=== PATIENT | male | born 1965 | race African-American/Black ===

== ENCOUNTER 2016-12-06 13:05 | Emergency (ER) | payer SELFPAY ==
[~2016-12-06] VITALS: Ht 160 cm; Wt 63.6 kg
[~2016-12-06 13:05] MED LIST: ASPIRIN E.C. 8181 MG PO; BLOOD PRESSURE MED; CEPHALEXIN500 M1 PO; CHOLESTEROL MED; FLEXERIL 1010 MG/TAB PO; LEVEMIR FLEX100 U/ML SQ; LORTAB 5/500 501 TAB PO; NORCO 325 MG-51 TAB PO; NOVLOG SQ; PROTONIX 40MG T40 MG PO; ROXICODONE 55 MG/TAB PO; THERAGRAN TAB1 UDTAB PO; TOPROL XL 25MG25 MG PO; ZESTORETIC 12.51 TAB PO; ZESTRIL 5MG5 MG PO; ZOCOR 20MG20 MG PO; ZOCOR20 MG PO; ZOFRAN 4MG T4 MG/TAB PO
[2016-12-06 13:07] VITALS: TEMP 98.4
[2016-12-06 14:29] LABS: BASO % 0.4 % (0.0-2.0); EOS # 0.1 (0.0-0.7); EOS % 1.5 % (0-4.0); GRAN # 2.8 (1.4-6.5); GRAN % 58.5 % (42.2-75.2); HEMATOCRIT 46.9 % (42.0-52.0); HEMOGLOBIN 15.7 g/dl (13.5-18.0); LYMPH # 1.5 (1.2-3.4); LYMPH % 30.7 % (20.0-51.0); MEAN CELL VOLUME 89 fl (80.0-100.0); MEAN CORPUSCULAR HEMOGLOBIN 30 pg (27.0-31.0); MEAN CORPUSCULAR HGB CONC 34 g/dl (33.0-37.0); MEAN PLATELET VOLUME 10.6 fl (7.4-10.4); MONO # 0.4 (0.1-0.6); MONO % 8.5 % (1.7-9.3); PLATELET COUNT 254 K/mm3 (130-400); RED BLOOD COUNT 5.26 M/mm3 (4.20-5.60); REDCELL DISTRIBUTION WIDTH-CV 14.9 % (11.5-14.5); WHITE BLOOD COUNT 4.7 K/mm3 (4.8-10.8)
[2016-12-06 14:44] LABS: ADJUSTED CALCIUM 8.8 mg/dL (8.4-10.2); ALANINE AMINOTRANSFERASE 44 U/L (21-72); ALBUMIN 3.9 gm/dL (3.5-5.0); ALKALINE PHOSPHATASE 99 U/L (50-136); ANION GAP 13 mmol/L (7-16); BLOOD UREA NITROGEN 12 mg/dL (9-20); CALCIUM 8.7 mg/dL (8.4-10.2); CARBON DIOXIDE 24 mmol/L (22-30); CHLORIDE 105 mmol/L (98-107); CREATININE, serum 0.67 mg/dL (0.66-1.25); GLUCOSE 254 mg/dL (74-106); POTASSIUM 3.9 mmol/L (3.4-5.0); SODIUM 142 mmol/L (137-145)
[2016-12-06 14:46] LABS: ACETAMINOPHEN < 10 ug/mL (10-30); SALICYLATE < 1.0 mg/dL
[2016-12-06 15:18] LABS: AMPHETAMINE URINE NEGATIVE; BARBITURATES URINE NEGATIVE; BENZODIAZEPINES URINE NEGATIVE; BUPRENORPHINE URINE NEGATIVE; METHADONE URINE NEGATIVE; OPIATES URINE NEGATIVE; OXYCODONE URINE NEGATIVE; PHENCYCLIDINE URINE NEGATIVE; PROPOXYPHENE URINE NEGATIVE; THC CANNABINOIDS URINE POSITIVE
[2016-12-06 17:26] VITALS: BP 167/108; PULSE 94
== END 2016-12-06 17:26 | disposition home or self-care (01) ==
LOC: COL.ER 13:05
PROVIDERS: Emergency Medicine
DX: F32.9 Major depressive disorder, single episode, unspecified (principal); R45.851 Suicidal ideations; E10.9 Type 1 diabetes mellitus without complications; Z79.4 Long term (current) use of insulin; I10 Essential (primary) hypertension; S61.512A Laceration without foreign body of left wrist, initial encounter; X78.9XXA Intentional self-harm by unspecified sharp object, initial encounter

== ENCOUNTER → 2017-05-19 | Outpatient (CLI) | payer SELFPAY | LOC: SUN.DIA 11:05 | DX: E10.9 Type 1 diabetes mellitus without complications (principal); Z79.4 Long term (current) use of insulin; F17.210 Nicotine dependence, cigarettes, uncomplicated | CPT/HCPCS: G0108 ==

== ENCOUNTER → 2017-10-13 | Outpatient (CLI) | payer MEDICAID | LOC: COL.RAD 08:11 | DX: K86.2 Cyst of pancreas (principal); K83.8 Other specified diseases of biliary tract; K76.0 Fatty (change of) liver, not elsewhere classified; K76.89 Other specified diseases of liver; R74.8 Abnormal levels of other serum enzymes ==

== ENCOUNTER → 2018-11-08 | Outpatient (CLI) | payer MEDICAID ==
[~2018-11-08] MED LIST changes: +ASPIRIN 81M81 MG/TA2 PO; +LOPRESSOR 225 MG/TAB PO; +NEURONTIN100 MG/CAP PO; +PRINIVIL40 MG PO
== END ==
LOC: COL.RAD 10-27 08:30
DX: K86.2 Cyst of pancreas (principal)
CPT/HCPCS: Q9967

== ENCOUNTER 2019-09-16 05:53 | Day surgery (SDC) | payer MEDICAID ==
[~2019-09-16] VITALS: Ht 165.1 cm; Wt 60.5 kg
[2019-09-16] MEDS ORDERED: ZYBAN150 M1 PO (06:11)
[2019-09-16] MEDS ORDERED: [UNRECOGNIZED DRUG - CODE] PO (06:11)
[2019-09-16] MEDS ORDERED: LANTUS SOLOS100 U/ML SQ (06:12)
[2019-09-16] MEDS ORDERED: NOVOLOG FLEX100 U/ML SQ (06:13)
[2019-09-16 06:29] VITALS: BP 101/75; PULSE 100; TEMP 97.7
--- NOTE | 2019-09-16 06:45 | NUR ---
BG level reported to Endo RN Veronica Camara pre-procedure.
[2019-09-16 07:35] VITALS: BP 93/66; PULSE 90; TEMP 98.4
--- NOTE | 2019-09-16 07:35 | NUR ---
The patient arrived back to [facility] from the [facility] at this time. The patient appears alert and oriented and ambulated from the cart to the recliner in his room with the stand by assistance of two nurses and appeared to tolerate the activity well. Post procedure vital signs were started. The patient's is at his bedside. Call light is within reach. The patient agrees to try some water and applesauce at this time. Will continue to monitor the patient.
[2019-09-16 07:48] VITALS: TEMP 98.4
[2019-09-16 07:50] VITALS: BP 88/65; PULSE 92
--- NOTE | 2019-09-16 07:50 | NUR ---
The patient appears to be tolerating the food and drink well and denies wanting anything further at this time. BP appears low but was that way throughout his colonoscopy ,according to the report given by the endoscopy nurse, the patient denies any dizziness or nausea. Will continue to monitor the patient.
[2019-09-16 08:05] VITALS: BP 97/73; PULSE 89
--- NOTE | 2019-09-16 08:10 | NUR ---
Discharge instructions were reviewed with the patient and his at this time. They both verbalized understanding and have no questions for the nurse at this time. The patient's IV to his right hand was removed and a pressure dressing was applied to the site. The nurse instructed the patient to get dressed and notify the staff when he is ready to be escorted out.
--- NOTE | 2019-09-16 08:20 | NUR ---
The patient was escorted out via wheelchair to a private vehicle by CHASTITY Alberto. The patient's belongings and discharge paperwork were sent wtih him. The patient's is present to drive him home.
== END 2019-09-16 08:20 | disposition home or self-care (01) ==
LOC: SDCO 05:53
DX: Z12.11 Encounter for screening for malignant neoplasm of colon (principal); D12.8 Benign neoplasm of rectum; K57.30 Diverticulosis of large intestine without perforation or abscess without bleeding; K64.1 Second degree hemorrhoids; I10 Essential (primary) hypertension; E78.00 Pure hypercholesterolemia, unspecified; M19.90 Unspecified osteoarthritis, unspecified site; K21.9 Gastro-esophageal reflux disease without esophagitis; E11.9 Type 2 diabetes mellitus without complications; Z79.82 Long term (current) use of aspirin; Z87.891 Personal history of nicotine dependence; Z79.4 Long term (current) use of insulin
CPT/HCPCS: J2704; J7030

== ENCOUNTER 2019-11-25 11:23 | Emergency (ER) | payer MEDICAID ==
[~2019-11-25] VITALS: Ht 165.1 cm; Wt 65.9 kg
[~2019-11-25 11:23] MED LIST changes: +LANTUS SOLOS100 U/ML SQ; +NOVOLOG FLEX100 U/ML SQ; +ZYBAN150 M1 PO; +[UNRECOGNIZED DRUG - CODE] PO
[2019-11-25 11:34] VITALS: BP 141/91
[2019-11-25] MEDS ORDERED: PEPCID40 MG PO (12:55)
[2019-11-25] MEDS ORDERED: PREDNISONE20 MG PO (12:55)
[2019-11-25 13:35] VITALS: PULSE 72; TEMP 97.9
== END 2019-11-25 13:35 | disposition home or self-care (01) ==
LOC: COL.ER 11:23
DX: T78.3XXA Angioneurotic edema, initial encounter (principal); E11.9 Type 2 diabetes mellitus without complications; I10 Essential (primary) hypertension; F17.210 Nicotine dependence, cigarettes, uncomplicated; Z79.4 Long term (current) use of insulin
CPT/HCPCS: J7512

== ENCOUNTER 2021-01-13 22:14 | Emergency (ER) | payer MEDICAID ==
[~2021-01-13] VITALS: Ht 165.1 cm; Wt 63.6 kg
[~2021-01-13 22:14] MED LIST changes: +PEPCID40 MG PO; +PREDNISONE20 MG PO
[2021-01-14] MEDS ORDERED: ROXICODONE 55 MG/TAB PO (00:01)
[2021-01-14] MEDS ORDERED: MOTRIN 400400 MG/TAB PO (00:01)
[2021-01-14] MEDS ORDERED: TYLENOL 325MG325 MG PO (00:01)
[2021-01-14 00:25] VITALS: BP 118/72; PULSE 69; TEMP 98.6
[2021-01-14] MEDS ORDERED: CRUTCHES MC (00:34)
== END 2021-01-14 00:25 | disposition home or self-care (01) ==
LOC: COL.ER 22:14
DX: M25.271 Flail joint, right ankle and foot (principal); E10.9 Type 1 diabetes mellitus without complications; Z96.698 Presence of other orthopedic joint implants; Z79.899 Other long term (current) drug therapy; W10.9XXA Fall (on) (from) unspecified stairs and steps, initial encounter; X50.1XXA Overexertion from prolonged static or awkward postures, initial encounter

== ENCOUNTER 2021-06-22 17:56 | Emergency (ER) | payer MEDICAID ==
[~2021-06-22] VITALS: Ht 165.1 cm; Wt 65.9 kg
[~2021-06-22 17:56] MED LIST changes: +CRUTCHES MC; +MOTRIN 400400 MG/TAB PO; +TYLENOL 325MG325 MG PO
[2021-06-22 18:09] VITALS: TEMP 98.5
[2021-06-22 21:48] VITALS: BP 122/92; PULSE 106
== END 2021-06-22 21:48 | disposition home or self-care (01) ==
LOC: COL.ER 17:56
DX: S40.022A Contusion of left upper arm, initial encounter (principal); S06.360A Traumatic hemorrhage of cerebrum, unspecified, without loss of consciousness, initial encounter; I10 Essential (primary) hypertension; E11.9 Type 2 diabetes mellitus without complications; F17.210 Nicotine dependence, cigarettes, uncomplicated; Z79.4 Long term (current) use of insulin; Z79.899 Other long term (current) drug therapy; Y04.8XXA Assault by other bodily force, initial encounter; Y07.499 Other family member, perpetrator of maltreatment and neglect

== ENCOUNTER → 2021-06-24 | Outpatient (CLI) | payer MEDICAID | LOC: COL.RAD 11:30 | DX: I60.9 Nontraumatic subarachnoid hemorrhage, unspecified (principal) ==

== ENCOUNTER → 2021-07-17 | Outpatient (CLI) | payer MEDICAID | LOC: COL.RAD 12:24 | DX: G31.9 Degenerative disease of nervous system, unspecified (principal); I60.9 Nontraumatic subarachnoid hemorrhage, unspecified ==

== ENCOUNTER 2024-06-11 09:35 | Inpatient (IN) | payer MEDICARE ==
[~2024-06-11] VITALS: Ht 160 cm; Wt 59.8 kg
[2024-06-11] VITALS (17 sets, daily range): BP systolic 95–119; BP diastolic 58–73; PULSE 60–102; TEMP 97.4–98.9
[~2024-06-11 09:35] MED LIST changes: +BASAGLAR K100 UNIT/1 SQ; +CREON 36000 PO; +CRESTOR5 MG PO; +FOLIC ACID 11 MG/TA1 PO; +K-DUR 10 MEQ T10 MEQ PO; +MOBIC15 MG PO; +MULTI VITAMINS1 TAB PO; +NORVASC 10MG10 MG PO; +THIAMINE 1100 MG/TAB PO; +TOPROL XL100 MG PO; +WELLBUTRIN XL150 MG PO
[2024-06-11] MEDS ORDERED: Pantoprazole 40 MG in NS 10 ML IV ONE (10:30)
[2024-06-11] MEDS ORDERED: NS 1,000 ML IV ONE (10:30)
[2024-06-11 10:32] LABS: BASO % 0.2 % (0.0-2.0); EOS # 0.1 K/mm3 (0.0-0.7); EOS % 1.5 % (0.0-4.0); GRAN # 5.5 K/mm3 (1.4-6.5); GRAN % 64.7 % (42.2-75.2); LYMPH # 1.9 K/mm3 (1.2-3.4); LYMPH % 22.4 % (20.0-51.0); MEAN CELL VOLUME 95 fl (80.0-100.0); MEAN CORPUSCULAR HGB CONC 30 g/dl (33.0-37.0); MEAN PLATELET VOLUME 10.3 fl (7.4-10.4); MONO # 0.9 K/mm3 (0.1-0.6); MONO % 10.7 % (1.7-9.3); PLATELET COUNT 275 K/mm3 (130-400); RED BLOOD COUNT 2.06 M/mm3 (4.20-5.60); REDCELL DISTRIBUTION WIDTH-CV 15.1 % (11.5-14.5)
[2024-06-11 10:33] LABS: HEMATOCRIT 19.6 % (42.0-52.0); HEMOGLOBIN 5.9 g/dl (13.5-18.0); MEAN CORPUSCULAR HEMOGLOBIN 29 pg (27-31)
[2024-06-11 10:37] LABS: INR 1.2 (0.8-3.0); PROTHROMBIN TIME 13.4 SECONDS (9.7-12.8)
[2024-06-11 10:45] LABS: BILIRUBIN,TOTAL 0.3 mg/dL (0.2-1.2); CALCIUM 8.6 mg/dL (8.4-10.2); CREATININE, serum 0.76 mg/dL (0.72-1.25); POTASSIUM 3.8 mEq/L (3.5-4.5); TOTAL PROTEIN 6.4 g/dl (6.2-8.1)
[2024-06-11] MEDS ORDERED: Pantoprazole 40 MG in NS 10 ML IV SCH (12:13)
[2024-06-11] MEDS ORDERED: KLOR-CON SPRIN10 MEQ PO (12:14)
[2024-06-11] MEDS ORDERED: Acetaminophen 500 MG TAB PO PRN (12:15)
[2024-06-11] MEDS ORDERED: Ondansetron 4 MG/2 ML VIAL IV PRN (12:15)
[2024-06-11] MEDS ORDERED: NS 1,000 ML IV SCH (12:15)
--- NOTE | 2024-06-11 13:04 | NUR ---
Report from er nurse. augustine to room 323. ALert and oriented. Blood transfusion in progress, no signs or symptoms of reaction present. Vss on room air. Admission to be completed.
[2024-06-11] MEDS ORDERED: TRAVATAN Z 2.52.5 ML OU (13:10)
--- NOTE | 2024-06-11 15:07 | NUR ---
Patient blood transfusion completed, spoke with to make her aware, orders obtained. Patient up to the bathroom, reports BM, but flushed before staff could see. He denies stool being dark in color. ICe water provided, NPO 0000.
[2024-06-11 16:01] LABS: HEMATOCRIT 18.6 % (42.0-52.0)
[2024-06-11 16:02] LABS: HEMOGLOBIN 5.9 g/dl (13.5-18.0)
--- NOTE | 2024-06-11 16:03 | NUR ---
notifed of critical H&H results. 5.9. She reports she will order another unit of blood.
[2024-06-11] MEDS ORDERED: Dextrose (Glucose) 15 GM (4 x 3.75 GM) Chewable TABLET PACK PO PRN (16:30)
[2024-06-11] MEDS ORDERED: Glucagon 1 MG VIAL IM PRN (16:30)
[2024-06-11] MEDS ORDERED: Dextrose 50% Water 25 GM/50 ML SYRINGE IV PRN (16:30)
[2024-06-11] MEDS ORDERED: Pancrelipase DR CAP (10,500 Units Lipase) PO SCH (17:00)
[2024-06-11] MEDS ORDERED: Insulin Lispro (HumaLOG) SQ SCH (17:00)
--- NOTE | 2024-06-11 17:01 | NUR ---
Patient resting in bed. He reports hunger. We discussed clear liquid tray options and importance of avoiding red and orange drinks. Second unit of blood start per orders. Signs and symptoms of transfusion reaction reviewed. Blood infusing via LFA @60ml/hr. Vss on room air. THis nurse remains at bedside.
[2024-06-11] MEDS ORDERED: NS 250 ML IV ONE (17:15)
--- NOTE | 2024-06-11 18:25 | NUR ---
Patient resting in bed. rounded this evening, plans for egd tmrw. Patient continues to do well with blood transfusions. Vss. Will report off to nightnurse
--- NOTE | 2024-06-11 19:42 | NUR ---
blood transfusion completed. patient tolerated without signs or symptoms of a reaction. Belenda to resume cares
--- NOTE | 2024-06-11 20:59 | NUR ---
PATIENT RESTING IN BED WITH TV ON WITH NO FAMILY PRESENT WITH NO ACUTE DISTRESS NOTED. PATIENT ON ROOM AIR. NS INFUSING INTO LEFT FOREARM WITH NO COMPLICATIONS NOTED. INT TO RIGHT AC INTACT WITH NO COMPLICATIONS NOTED. PATIENT REQUESTED TO USE BATHROOM. PATIENT AMBULATED TO BATHROOM WITH STAND BY ASSIST. GAIT STEADY. PATIENT DID OWN CARMEN CARE. PATIENT AMBULATED BACK TO BED. BLOOD SUGAR CHECKED AND WAS 114. ASSESSMENT AND MEDICAITON ADMINISTRATION COMPLETED AT THIS TIME. SEE EMAR. PATIENT TOLERATED WELL. JELLO, GRAPE, AND APPLE JUICE GIVEN. PATIENT DENIES ANY OTHER NEEDS. BED IN LOW POSITION WITH WHEELS LOCKED WITH RAILS UP X3 AND CALL LIGHT WITHIN REACH.
[2024-06-11] MEDS ORDERED: Travoprost Ophth Soln **** subs to Latanoprost Ophth Soln OP SCH (21:00)
[2024-06-11] MEDS ORDERED: Insulin Glargine-ygfn (Lantus) SQ SCH (21:00)
[2024-06-11] MEDS ORDERED: Rosuvastatin 5 MG **** subs to Atorvastatin 10 MG PO SCH (21:00)
[2024-06-11] MEDS ORDERED: Atorvastatin 10 MG TAB PO SCH (21:00)
[2024-06-11] MEDS ORDERED: Latanoprost 0.005% Ophth Soln 2.5 ML BOTTLE OP SCH (21:00)
[2024-06-11 23:56] LABS: HEMATOCRIT 20.6 % (42.0-52.0)
[2024-06-12] VITALS (13 sets, daily range): BP systolic 104–145; BP diastolic 63–81; PULSE 68–98; TEMP 98.4–99.2
[2024-06-12 05:29] LABS: BASO % 0.4 % (0.0-2.0); EOS # 0.1 K/mm3 (0.0-0.7); EOS % 2.1 % (0.0-4.0); GRAN # 2.9 K/mm3 (1.4-6.5); GRAN % 61.9 % (42.2-75.2); LYMPH # 1.1 K/mm3 (1.2-3.4); LYMPH % 22.5 % (20.0-51.0); MEAN CORPUSCULAR HGB CONC 33 g/dl (33.0-37.0); MEAN PLATELET VOLUME 10.1 fl (7.4-10.4); MONO # 0.6 K/mm3 (0.1-0.6); MONO % 12.7 % (1.7-9.3); PLATELET COUNT 214 K/mm3 (130-400); RED BLOOD COUNT 2.57 M/mm3 (4.20-5.60); REDCELL DISTRIBUTION WIDTH-CV 18.6 % (11.5-14.5)
[2024-06-12 05:46] LABS: ANION GAP 7 mmol/L (7-16); BLOOD UREA NITROGEN < 5 mg/dL (8-26); CALCIUM 8.2 mg/dL (8.4-10.2); CHLORIDE 112 mEq/L (98-107); CREATININE, serum 0.69 mg/dL (0.72-1.25); GLUCOSE 151 mg/dL (70-99); HEMATOCRIT 21.6 % (42.0-52.0); HEMOGLOBIN 7.1 g/dl (13.5-18.0); MEAN CELL VOLUME 84 fl (80.0-100.0); MEAN CORPUSCULAR HEMOGLOBIN 28 pg (27-31); POTASSIUM 3.7 mEq/L (3.5-4.5); SODIUM 139 mEq/L (136-145)
[2024-06-12] MEDS ORDERED: NS 1,000 ML IV SCH (06:00)
--- NOTE | 2024-06-12 08:00 | NUR ---
Pt doing well with no complaints. Reports no pain at this time. Pt aware that he cannot have anything to eat or drink at this time for scheduled EGD. Consent signed. Informed pt that EGD will be mid to late morning
[2024-06-12] MEDS ORDERED: Influenza Virus Vaccine, Trivalent '24-25 0.5 ML SYRINGE IM SCH ×2 (09:00→15:00)
[2024-06-12] MEDS ORDERED: buPROPion XL (24-HR) 150 MG TAB PO SCH (09:00)
[2024-06-12] MEDS ORDERED: Lidocaine PF 2% (20 MG/ML) 5 ML VIAL ONE (10:54)
--- NOTE | 2024-06-12 11:30 | NUR ---
Pt back from EGD. Explained post op EGD and plan of care, no questions at this time.
--- NOTE | 2024-06-12 13:00 | NUR ---
Pt tolerated clear liquids, pt advanced to ADA per order. Educated pt on room service and gave him his menu and phone to order. pt continues to deny having any pain.
--- NOTE | 2024-06-12 13:12 | NUR ---
NAIL SETTER met with pt bedside to complete initial consult and discuss discharge planing. Pt confirmed pcp as Moncho Gomez and prefered pharmacy is [facility]. Pt has a DPOA that names Faina Leon [phone]. Pt is fully independent at home and utilizes no assistive devices or equipment. Pt matty any falls within the last 3 months. Pt has no financial concerns and feels safe at home. Declined additional resource needs. D/c: Home with partner.
--- NOTE | 2024-06-12 20:25 | NUR ---
Patient sitting up on the edge of the bed. Denies any pain. Assessment complete. IV in left forearm and right AC flush easily without complications. States he would like to take a shower. IV sites wrapped and TELE removed. Patient in shower.
[2024-06-13] VITALS (7 sets, daily range): BP systolic 119–144; BP diastolic 76–80; PULSE 83–91; TEMP 97.4–98.4
[2024-06-13 05:51] LABS: BASO % 0.2 % (0.0-2.0); EOS # 0.1 K/mm3 (0.0-0.7); EOS % 1.7 % (0.0-4.0); GRAN # 3.4 K/mm3 (1.4-6.5); GRAN % 66.1 % (42.2-75.2); LYMPH # 1.1 K/mm3 (1.2-3.4); LYMPH % 21.1 % (20.0-51.0); MEAN CELL VOLUME 83 fl (80.0-100.0); MEAN CORPUSCULAR HGB CONC 33 g/dl (33.0-37.0); MEAN PLATELET VOLUME 10.3 fl (7.4-10.4); MONO # 0.6 K/mm3 (0.1-0.6); MONO % 10.7 % (1.7-9.3); PLATELET COUNT 243 K/mm3 (130-400); RED BLOOD COUNT 2.55 M/mm3 (4.20-5.60); REDCELL DISTRIBUTION WIDTH-CV 18.2 % (11.5-14.5)
[2024-06-13 05:54] LABS: HEMATOCRIT 21.1 % (42.0-52.0); MEAN CORPUSCULAR HEMOGLOBIN 27 pg (27-31)
[2024-06-13 06:09] LABS: CALCIUM 8.4 mg/dL (8.4-10.2); CREATININE, serum 0.78 mg/dL (0.72-1.25); POTASSIUM 3.9 mEq/L (3.5-4.5)
--- NOTE | 2024-06-13 09:10 | NUR ---
Pt doing well this morning, no complaints of pain at this time. States sometimes his stomach feels funny. Pt reports having bowel movement, but states not normal yet. Breakfast has been ordered
[2024-06-13] MEDS ORDERED: PROTONIX 40MG T40 MG PO (09:54)
--- NOTE | 2024-06-13 10:39 | NUR ---
Initial visit; Patient thanked Music Director for looking in on him and offering Spiritual Care.
[2024-06-13] MEDS ORDERED: Influenza Virus Vaccine, Trivalent '24-25 0.5 ML SYRINGE IM ONE (11:45)
--- NOTE | 2024-06-13 12:02 | NUR ---
Reviewed discharge instructions with pt to include follow up appointments and prescription. Pt denies having any questions. INTs removed by nursing service director Y[place]. Pt stated that his ride would be here around 1:00pm. Informed him to notify nursing when his ride does arrive as we have to escort him out
[2024-06-13] MEDS ORDERED: Influenza Virus Vaccine, Trivalent '24-25 0.5 ML SYRINGE IM SCH (15:00)
== END 2024-06-13 12:28 | disposition home or self-care (01) | DRG 811 ==
LOC: COL.ER 09:35 → SURG 11:32
PROVIDERS: Physician Assistant; Surgery; ADMIT Internal Medicine
PROC: 30233N1 Transfusion of Nonautologous Red Blood Cells into Peripheral Vein, Percutaneous Approach (ICD-10-PCS; 2024-06-12)
PROC: 0DB98ZX Excision of Duodenum, Via Natural or Artificial Opening Endoscopic, Diagnostic (ICD-10-PCS; principal; 2024-06-12 09:00)
DX: D62 Acute posthemorrhagic anemia (principal); K26.0 Acute duodenal ulcer with hemorrhage; I10 Essential (primary) hypertension; E78.5 Hyperlipidemia, unspecified; F32.A Depression, unspecified; K21.9 Gastro-esophageal reflux disease without esophagitis; F10.20 Alcohol dependence, uncomplicated; Z86.59 Personal history of other mental and behavioral disorders; Z79.899 Other long term (current) drug therapy; Z79.02 Long term (current) use of antithrombotics/antiplatelets; Z79.4 Long term (current) use of insulin; F17.290 Nicotine dependence, other tobacco product, uncomplicated; E10.9 Type 1 diabetes mellitus without complications
CPT/HCPCS: J1815; J2470; J2704; J7030; J7050; P9016